=== PATIENT | male | born 1970 | race Caucasian/White ===

== ENCOUNTER 2024-06-08 10:45 | Outpatient (OUT) | payer BC, SELFPAY ==
--- NOTE | 2024-06-08 | XR_ITS ---
The [address] [address] Patient Name: SALABDOR COBB MRN: [id number] date: 1970 Sex: M Assigned Patient Location: [facility] Current Patient Location: Accession/Order Number: [id number] Exam Date: 06/08/2024 11:00 Report Date: 06/10/2024 09:20 At the request of: QUINN PATTERSON Procedure: XR cervical spine 5V EXAMINATION: XR cervical spine 5V HISTORY: CERVICAL RADICULAR PAIN M54.12 ; left side neck pain; no known injury COMPARISON: No relevant comparison available. FINDINGS: BONES: No significant spondylosis, scoliosis, fracture, or visible bony lesion. DISC SPACES: Slight narrowing C6-7. PARASPINOUS: Negative. No paraspinous abnormality is seen. OTHER: Negative. XR/XR cervical spine 5V IMPRESSION: 1. No appreciable acute abnormality. 2. Minimal disc space narrowing at C6-C7 suggesting degenerative disc disease. Electronically authenticated by: ARUNA GARCIA Date: 06/10/2024 09:20
== END 2024-06-08 10:46 | disposition home or self-care (01) ==
LOC: RAD 10:48
PROVIDERS: PCP Family Medicine; Visit Provider Family Medicine
DX: M54.12 Radiculopathy, cervical region (principal)
CPT/HCPCS: 72050

== ENCOUNTER 2024-06-23 06:57 | Outpatient (RCR) | payer BC, SELFPAY | END 2024-07-15 15:55 | disposition home or self-care (01) | LOC: PT 06:57 | PROVIDERS: PCP Family Medicine; Visit Provider Family Medicine | DX: M54.2 Cervicalgia (principal); R29.3 Abnormal posture | CPT/HCPCS: 97012; 97110; 97140; 97161 ==